=== PATIENT | female | born 1940 | race Caucasian/White ===

== ENCOUNTER 2017-11-22 11:06 | Inpatient (IN) | payer SELFPAY ==
[~2017-11-22] VITALS: Ht 134.6 cm; Wt 41.1 kg
[2017-11-22 13:30] LABS: BASOPHIL % 0.3 % (0-2); PLATELET COUNT 362 x10^3mcL (130-400)
[2017-11-22 13:34] LABS: CALCIUM 8.3 mg/dL (8.5-10.1); CARBON DIOXIDE 25.3 mmol/L (21-32); CHLORIDE SERUM 108 mmol/L (98-107); CREATININE SERUM 0.9 mg/dL (0.6-1.0); GLUCOSE SERUM 103 mg/dL (74-106); POTASSIUM SERUM 4.3 mmol/L (3.5-5.1); SODIUM SERUM 137 mmol/L (136-145)
[2017-11-22 13:37] LABS: RED CELL DISTRIBUTION WIDTH 19.6 % (11.5-14.5)
[2017-11-22 13:46] LABS: ALKALINE PHOSPHATASE 72 U/L (46-116); ALT/SGPT 22 U/L (14-59); AST/SGOT 22 U/L (15-37); BILIRUBIN TOTAL 0.4 mg/dL (0.20-1.00); FREE T4 0.89 ng/dL (0.76-1.46); TOTAL PROTEIN, SERUM 6.8 g/dL (6.4-8.2)
[2017-11-22 13:48] LABS: ALBUMIN 3.2 g/dL (3.4-5.0)
[2017-11-22 14:04] LABS: rbc morphology (normal/abnorm) ABNORMAL (NORMAL)
[2017-11-22 15:13] LABS: MAGNESIUM 2.8 mg/dL (1.8-2.4); PHOSPHOROUS 3.5 mg/dL (2.5-4.9)
[2017-11-22 15:18] LABS: T3 TOTAL 0.74 ng/mL
[2017-11-22 15:20] LABS: FREE T4 0.87 ng/dL (0.76-1.46); T4(THYROXINE) 6.1 ug/dL (4.7-13.3)
[2017-11-22] MEDS ORDERED: SIMVASTATIN10 M1 PO (15:37)
[2017-11-22] MEDS ORDERED: LISINOPRIL2.5 MG PO (15:37)
[2017-11-22] MEDS ORDERED: ASPIRIN ADULT L81 M5 PO (15:39)
[2017-11-22 15:42] LABS: microscopic required? NO
[2017-11-22 15:53] LABS: UA SPECIFIC GRAVITY <=1.005 (1.005-1.035); urine erythrocyte NEGATIVE (NEGATIVE)
[2017-11-22 16:17] VITALS: BP 147/56
[2017-11-22 20:59] VITALS: BP 113/51
[2017-11-22 22:50] LABS: BASOPHIL % 0.3 % (0-2); PLATELET COUNT 318 x10^3mcL (130-400)
[2017-11-22 22:51] LABS: RED CELL DISTRIBUTION WIDTH 22.8 % (11.5-14.5)
[2017-11-23 05:55] VITALS: BP 109/54
[2017-11-23 06:20] LABS: CALCIUM 8.3 mg/dL (8.5-10.1); CARBON DIOXIDE 24.3 mmol/L (21-32); CHLORIDE SERUM 108 mmol/L (98-107); GLUCOSE SERUM 87 mg/dL (74-106); MAGNESIUM 2.3 mg/dL (1.8-2.4); PHOSPHOROUS 3.6 mg/dL (2.5-4.9); POTASSIUM SERUM 4.9 mmol/L (3.5-5.1); SODIUM SERUM 140 mmol/L (136-145)
[2017-11-23 07:57] LABS: BASOPHIL % 0.5 % (0-2); PLATELET COUNT 321 x10^3mcL (130-400); RED CELL DISTRIBUTION WIDTH 21.9 % (11.5-14.5)
[2017-11-23 08:10] VITALS: BP 145/56
[2017-11-23 08:43] LABS: IRON 113 ug/dL (50-170); TOTAL IRON BINDING CAPACITY 400 ug/dL (250-450)
[2017-11-23 09:14] LABS: RED BLOOD CELLS 3.35 M/mm3 (4.10-5.10)
[2017-11-23 11:56] VITALS: BP 126/60
[2017-11-23 16:10] VITALS: BP 124/51
[2017-11-23 21:08] VITALS: BP 101/36
[2017-11-24 01:19] VITALS: Ht 134.6 cm; Wt 41.1 kg
[2017-11-24 05:36] VITALS: BP 119/58
[2017-11-24 06:55] LABS: PLATELET COUNT 364 x10^3mcL (130-400)
[2017-11-24 07:03] LABS: CALCIUM 9.5 mg/dL (8.5-10.1); CARBON DIOXIDE 21.2 mmol/L (21-32); CHLORIDE SERUM 117 mmol/L (98-107); CREATININE SERUM 1.3 mg/dL (0.6-1.0); GLUCOSE SERUM 152 mg/dL (74-106); MAGNESIUM 2.9 mg/dL (1.8-2.4); PHOSPHOROUS 4.4 mg/dL (2.5-4.9); POTASSIUM SERUM 4.4 mmol/L (3.5-5.1); SODIUM SERUM 154 mmol/L (136-145)
[2017-11-24 07:09] LABS: BASOPHIL % 0 % (0-2); RED CELL DISTRIBUTION WIDTH 22.3 % (11.5-14.5)
[2017-11-24 07:52] VITALS: BP 142/46
[2017-11-24 09:32] VITALS: BP 146/60
[2017-11-24 12:59] VITALS: BP 150/63
[2017-11-24 17:04] VITALS: BP 124/58
[2017-11-24] MEDS ORDERED: NATURAL IRON65 MG PO (17:32)
[2017-11-24] MEDS ORDERED: COLACE100 MG PO (17:32)
== END 2017-11-24 19:30 | disposition home or self-care (01) | DRG 811 ==
LOC: ED 11:06 → DU 14:03
PROVIDERS: Emergency Medicine; Family Medicine; Internal Medicine Gastroenterology
PROC: 30233N1 Transfusion of Nonautologous Red Blood Cells into Peripheral Vein, Percutaneous Approach (ICD-10-PCS; principal; 2017-11-22)
PROC: 0DBH8ZX Excision of Cecum, Via Natural or Artificial Opening Endoscopic, Diagnostic (ICD-10-PCS; 2017-11-24)
PROC: 0DB68ZX Excision of Stomach, Via Natural or Artificial Opening Endoscopic, Diagnostic (ICD-10-PCS; 2017-11-24 08:00)
PROC: 0DBK8ZX Excision of Ascending Colon, Via Natural or Artificial Opening Endoscopic, Diagnostic (ICD-10-PCS; 2017-11-24 08:00)
DX: D50.9 Iron deficiency anemia, unspecified (principal); N17.0 Acute kidney failure with tubular necrosis; E44.0 Moderate protein-calorie malnutrition; L03.116 Cellulitis of left lower limb; I10 Essential (primary) hypertension; E78.5 Hyperlipidemia, unspecified; E86.0 Dehydration; K57.30 Diverticulosis of large intestine without perforation or abscess without bleeding; K64.8 Other hemorrhoids; E02 Subclinical iodine-deficiency hypothyroidism; E83.51 Hypocalcemia; Z68.21 Body mass index [BMI] 21.0-21.9, adult
CPT/HCPCS: 43235; 45378; 83880; 84439; J1200; J1610; J2250; J2310; J2916; J3010; J3490; P9016; Q0092; Q0163; Q9967